=== PATIENT | male | born 1945 | race Caucasian/White ===

== ENCOUNTER → 2016-09-25 | Outpatient (CLI) | payer MEDICARE, BC ==
--- NOTE | 2016-09-25 15:22 | RAD ---
Left axillary ultrasound History: Left axillary lump, low platelet count. Comparison: None. Findings: Grayscale imaging was performed of the left axilla. Multiple enlarged lymph nodes are seen. Lymph nodes appear to retain fatty cornelio, but demonstrate cortical thickening. Lymph nodes are measured at 4.7 x 3.1 x 2.2 cm, 2.2 x 2.2 x 1.3 cm, 2.9 x 1.5 x 1.7 cm, and 2.1 x 1.9 x 1.6 cm. Numerous smaller lymph nodes are seen. Impression: Left axillary lymphadenopathy. Lymphoma versus metastatic lymphadenopathy are thought most likely. The lymphadenopathy is thought to be a greater than expected for reactive causes, although such is not entirely excluded. Recommend clinical correlation.
== END | disposition home or self-care (01) ==
LOC: US 09:45
PROVIDERS: ATTEND Family Medicine
DX: R59.0 Localized enlarged lymph nodes (principal); R91.8 Other nonspecific abnormal finding of lung field; R59.9 Enlarged lymph nodes, unspecified
CPT/HCPCS: 76881

== ENCOUNTER → 2016-10-16 | Outpatient (CLI) | payer MEDICARE, BC ==
[2016-10-16 13:57] LABS: BASO # 0.1 x10^3/uL (0.0-0.2); BASO % 1 % (0-3); EOS # 0.2 x10^3/uL (0.0-0.7); EOS % 2 % (0-3); HEMATOCRIT 42.5 % (39.0-53.0); HEMOGLOBIN 14.3 g/dL (13.0-17.5); LYMPH % 38 % (24-48); MEAN CORPUSCULAR HEMOGLOBIN 29 pg (25-35); MEAN CORPUSCULAR HGB CONC 34 g/dL (31-37); MEAN CORPUSCULAR VOLUME 86 fL (79-100); MONO # 0.5 x10^3/uL (0.0-1.1); MONO % 6 % (0-9); NEUT # 4.2 x10^3uL (1.8-7.7); NEUT % 53 % (31-73); PLATELET COUNT 178 x10^3/uL (140-400); RED BLOOD COUNT 4.96 x10^6/uL (4.30-5.70); RED CELL DISTRIBUTION WIDTH 15.3 % (11.5-14.5); WHITE BLOOD COUNT 7.9 x10^3/uL (4.0-11.0)
[2016-10-16 15:20] LABS: % EOS 2 % (0-5); % LYMPHS 38 % (24-48); % MONOS 3 % (0-10); % SEGS 57 % (35-66)
[2016-10-16 15:26] LABS: PLT ESTIMATE ADEQUATE (ADEQUATE)
== END | disposition home or self-care (01) ==
LOC: LAB 13:28
PROVIDERS: ATTEND Surgery
DX: R59.0 Localized enlarged lymph nodes (principal)
CPT/HCPCS: 36415; 85007; 85027; 85610; 85730

== ENCOUNTER → 2016-10-29 | Outpatient (CLI) | payer MEDICARE, BC ==
--- NOTE | 2016-10-29 16:30 | CARD ---
APPROVED REPORT EXAM: Two-dimensional and M-mode echocardiogram with Doppler and color Doppler. Other Information Quality : GoodHR: 85bpm Rhythm : NSR INDICATION Lymphoma 2D DIMENSIONS RVDd2.5 (2.9-3.5cm)IVSd1.0 (0.7-1.1cm) Aortic Root(2D)3.3 (2.0-3.7cm)LVDd4.7 (3.9-5.9cm) LVOT Diameter2.4 (1.8-2.4cm)PWd1.0 (0.7-1.1cm) LVDs3.2 (2.5-4.0cm)FS (%) 31.2 % SV59.7 mlLVEF(%)59.0 (>50%) Pulmonary Valve PV Peak Uzzbqqlc274.2cm/sPV Peak Grad.4mmHg LEFT VENTRICLE The left ventricle is normal size. There is normal left ventricular wall thickness. The left ventricu lar systolic function is normal and the ejection fraction is within normal range. The Ejection Fracti on is 55-60%. There is normal LV segmental wall motion. Limited echo, left ventricular diastology was not assessed. RIGHT VENTRICLE The right ventricle is normal size. There is normal right ventricular wall thickness. The right ventr icular systolic function is normal. ATRIA The left atrium size is normal. The right atrium size is normal. AORTIC VALVE The aortic valve is normal in structure and function. There is no significant aortic valvular stenosi s. MITRAL VALVE There is no evidence of mitral valve prolapse. There is no mitral valve stenosis. TRICUSPID VALVE There is no tricuspid valve prolapse or vegetation. There is no tricuspid valve stenosis. PULMONIC VALVE There is no pulmonic valvular stenosis. GREAT VESSELS The aortic root is normal in size. The ascending aorta is normal in size. The IVC was not assessed at exam time. PERICARDIAL EFFUSION There is no evidence of significant pericardial effusion. Critical Notification Critical Value: No <Conclusion> Limited echo to assess LV function. The left ventricular systolic function is normal and the ejection fraction is within normal range. The Ejection Fraction is 55-60%. There is no evidence of significant pericardial effusion.
== END | disposition home or self-care (01) ==
LOC: ECHO 14:39
PROVIDERS: ATTEND Internal Medicine Hematology & Oncology
DX: C82.20 Follicular lymphoma grade III, unspecified, unspecified site (principal)
CPT/HCPCS: 93308

== ENCOUNTER → 2016-12-23 | Outpatient (CLI) | payer MEDICARE, BC ==
--- NOTE | 2016-12-23 11:14 | RAD ---
Chest, 2 views, 12/23/2016: History: Fever, chemotherapy patient Comparison is made to a study from 11/07/2016. A left Port-A-Cath remains in place. It has pulled back slightly with its tip now lying at the junction of the left innominate vein and the superior vena cava. The heart size and pulmonary vascularity are normal. No pulmonary infiltrates are seen. There is no evidence of pleural fluid. There is mild loss of height of a midthoracic vertebral body of indeterminate age. There are mild scattered spurs in the spine. IMPRESSION: No acute cardiopulmonary abnormality is detected.
== END | disposition home or self-care (01) ==
LOC: DXRAD 10:13
PROVIDERS: ATTEND Internal Medicine Hematology & Oncology
DX: C82.20 Follicular lymphoma grade III, unspecified, unspecified site (principal); R50.9 Fever, unspecified
CPT/HCPCS: 71020

== ENCOUNTER → 2018-08-14 | Outpatient (CLI) | payer MEDICARE, BC ==
--- NOTE | 2018-08-14 14:54 | RAD ---
Indication:Elevated alkaline phosphatase TECHNIQUE: Grayscale, color Doppler and spectral waveform is of the abdomen obtained. COMPARISON:None FINDINGS: The visualized pancreas is within normal limits. No aortic aneurysm. IVC within normal limits. No gallstones, pericholecystic fluid or gallbladder wall thickening. Main portal vein is patent with hepatopedal flow. CBD measures 5 mm in diameter and is normal in size. Liver is mildly enlarged in size measuring 19 cm with diffusely increased echogenicity. Right kidney measures 11.2 cm in length without hydronephrosis. Spleen measures 11 cm in longest dimension and is normal in size. Left kidney measures 11.6 cm in length without hydronephrosis. IMPRESSION: 1. Hepatic steatosis. Mild hepatomegaly. 2. No cholelithiasis or sonographic evidence of acute cholecystitis. Electronically signed by: Aditya Nair DO (08/14/2018 2:51 PM) [id number]
== END | disposition home or self-care (01) ==
LOC: US 09:42
PROVIDERS: ATTEND Internal Medicine Hematology & Oncology
DX: K76.0 Fatty (change of) liver, not elsewhere classified (principal); R16.0 Hepatomegaly, not elsewhere classified
CPT/HCPCS: 76700

== ENCOUNTER 2019-02-17 01:17 | Emergency (ER) | payer MEDICARE, BC ==
[~2019-02-17] VITALS: Ht 172.7 cm; Wt 88.5 kg
[2019-02-17] MEDS ORDERED: MECLIZINE 12.5 MG TABLET. PO STA (01:48)
[2019-02-17] MEDS ORDERED: ONDANSETRON PF 4 MG/2 ML VIAL. IV ONE (02:00)
[2019-02-17] MEDS ORDERED: IV NORMAL SALINE 1,000ML 1,000 ML IV ONE (02:00)
--- NOTE | 2019-02-17 02:27 | RAD ---
CT head without contrast: Reason for examination: Headaches and dizziness. History of lymphoma. Axial images were obtained through the brain. No contrast was administered. Exposure: One or more of the following individualized dose reduction techniques were utilized for this examination: 1. Automated exposure control 2. Adjustment of the mA and/or kV according to patient size 3. Use of iterative reconstruction technique. Ventricular systems are symmetric and not abnormally dilated considering the patient's advanced age and generalized cerebral atrophy. No midline shift is seen. There is no evidence of intracranial hemorrhage, infarct, mass or edema. There are some mild patchy deep white matter changes consistent with microvascular ischemia. No abnormalities are seen at the orbits. No acute abnormality seen in the skull. The paranasal sinuses and mastoid air cells are clear. IMPRESSION: Generalized cerebral atrophy with mild patchy deep white matter microvascular ischemic changes. No acute intracranial abnormality evident. Electronically signed by: Liv Alanis MD (02/17/2019 2:24 AM) [facility]
[2019-02-17 02:38] LABS: BASO % 1 % (0-3); EOS # 0.1 x10^3/uL (0.0-0.7); EOS % 2 % (0-3); HEMATOCRIT 42.2 % (39.0-53.0); HEMOGLOBIN 14.4 g/dL (13.0-17.5); LYMPH # 1.3 x10^3/uL (1.0-4.8); LYMPH % 21 % (24-48); MEAN CORPUSCULAR HEMOGLOBIN 32 pg (25-35); MEAN CORPUSCULAR HGB CONC 34 g/dL (31-37); MEAN CORPUSCULAR VOLUME 93 fL (79-100); MONO # 0.4 x10^3/uL (0.0-1.1); MONO % 7 % (0-9); NEUT # 4.2 x10^3uL (1.8-7.7); NEUT % 70 % (31-73); PLATELET COUNT 183 x10^3/uL (140-400); RED BLOOD COUNT 4.53 x10^6/uL (4.30-5.70); RED CELL DISTRIBUTION WIDTH 13.5 % (11.5-14.5)
[2019-02-17 02:47] LABS: BACTERIA,URINE 0 /HPF (0-FEW); BILIRUBIN,URINE NEG (NEG); CLARITY,URINE CLEAR; COLOR,URINE YELLOW; GLUCOSE,URINE NEG (NEG); NITRITE,URINE NEG (NEG); RBC,URINE 0 /HPF (0-2); SQUAMOUS EPITHELIAL CELL,UR OCC /LPF; UROBILINOGEN,URINE 0.2 mg/dL (0.2 mg/dL)
[2019-02-17 02:52] LABS: ALBUMIN 4.2 g/dL (3.4-5.0); ALBUMIN/GLOBULIN RATIO 1.6 (1.0-1.7); CALCIUM 9.1 mg/dL (8.5-10.1); GFR 73.7; POTASSIUM 3.8 mmol/L (3.5-5.1); TOTAL BILIRUBIN 0.6 mg/dL (0.2-1.0); TOTAL PROTEIN 6.8 g/dL (6.4-8.2)
[2019-02-17 02:55] VITALS: BP 141/86
--- NOTE | 2019-02-17 03:02 | PHYS DOC ---
Past History Past Medical History: Other Past Surgical History: Other Alcohol Use: None Drug Use: None Adult General Chief Complaint Chief Complaint: DIZZY/LIGHT HEADED HPI HPI Patient is a [73 yo m p/w dizziness onset 11 pm feels like room spinning worse with head positioning no diplopia no speech difficulty no n/tweakness in arms or legs no fever minimla posterior headache where it joins top of neck, not shooting or severe just feels a little stiff hx of nonhodgkins lymphoma. symptoms worsening with time thought he would fall over so came to er for evaluation. Review of Systems Review of Systems Constitutional: Denies fever or chills [] Eyes: Denies change in visual acuity, redness, or eye pain [] HENT: Denies nasal congestion or sore throat [] Respiratory: Denies cough or shortness of breath [] Cardiovascular: No additional information not addressed in HPI [] GI: Denies abdominal pain, nausea, vomiting, bloody stools or diarrhea [] : Denies dysuria or hematuria [] Musculoskeletal: Denies back pain or joint pain [] Integument: Denies rash or skin lesions [] Neurologic: Denies headache, focal weakness or sensory changes [] Endocrine: Denies polyuria or polydipsia [] All other systems were reviewed and found to be within normal limits, except as documented in this note. Current Medications Current Medications Current Medications Medications (Trade) Dose Ordered Sig/Jose R Start Time Stop Time Status Last Admin Dose Admin Meclizine HCl (Antivert) 25 mg 1X STAT 02/17/19 01:48 02/17/19 02:27 DC 02/17/19 01:56 25 MG Ondansetron HCl (Zofran) 4 mg 1X ONCE 02/17/19 02:00 02/17/19 02:27 DC 02/17/19 01:56 4 MG Sodium Chloride 1,000 ml @ 1,000 mls/hr 1X ONCE 02/17/19 02:00 02/17/19 02:59 02/17/19 01:53 1,000 MLS/HR Allergies Allergies Allergies Coded Allergies Type Severity Reaction Last Updated Verified tetracycline Allergy Unknown 02/17/19 Yes Physical Exam Physical Exam Constitutional: Well developed, well nourished, no acute distress, non-toxic appearance. [] HENT: Normocephalic, atraumatic, bilateral external ears normal, oropharynx moist, no oral exudates, nose normal. [] Eyes: PERRLA, EOMI, conjunctiva normal, no discharge. [] Neck: Normal range of motion, no tenderness, supple, no stridor. [] Cardiovascular:Heart rate regular rhythm, no murmur [] Lungs & Thorax: Bilateral breath sounds clear to auscultation [] Abdomen: Bowel sounds normal, soft, no tenderness, no masses, no pulsatile masses. [] Skin: Warm, dry, no erythema, no rash. [] Back: No tenderness, no CVA tenderness. [] Extremities: No tenderness, no cyanosis, no clubbing, ROM intact, no edema. [] Neurologic: Alert and oriented X 3, normal motor function, normal sensory function, no focal deficits noted. [] fnf intact b/l some fatiguable horizontal nystagmus when looking to the right no vertical nystagmus Psychologic: Affect normal, judgement normal, mood normal. [] Current Patient Data Vital Signs Vital Signs Date Time Temp Pulse Resp B/P (MAP) Pulse Ox O2 Delivery O2 Flow Rate FiO2 02/17/19 01:49 62 18 151/96 (114) 97 Room Air 02/17/19 01:19 97.7 Lab Results Laboratory Tests Test 02/17/19 01:49 02/17/19 02:15 White Blood Count 6.0 x10^3/uL (4.0-11.0) Red Blood Count 4.53 x10^6/uL (4.30-5.70) Hemoglobin 14.4 g/dL (13.0-17.5) Hematocrit 42.2 % (39.0-53.0) Mean Corpuscular Volume 93 fL (79-100) Mean Corpuscular Hemoglobin 32 pg (25-35) Mean Corpuscular Hemoglobin Concent 34 g/dL (31-37) Red Cell Distribution Width 13.5 % (11.5-14.5) Platelet Count 183 x10^3/uL (140-400) Neutrophils (%) (Auto) 70 % (31-73) Lymphocytes (%) (Auto) 21 % (24-48) L Monocytes (%) (Auto) 7 % (0-9) Eosinophils (%) (Auto) 2 % (0-3) Basophils (%) (Auto) 1 % (0-3) Neutrophils # (Auto) 4.2 x10^3uL (1.8-7.7) Lymphocytes # (Auto) 1.3 x10^3/uL (1.0-4.8) Monocytes # (Auto) 0.4 x10^3/uL (0.0-1.1) Eosinophils # (Auto) 0.1 x10^3/uL (0.0-0.7) Basophils # (Auto) 0.0 x10^3/uL (0.0-0.2) Sodium Level 143 mmol/L (136-145) Potassium Level 3.8 mmol/L (3.5-5.1) Chloride Level 104 mmol/L (98-107) Carbon Dioxide Level 30 mmol/L (21-32) Anion Gap 9 (6-14) Blood Urea Nitrogen 17 mg/dL (8-26) Creatinine 1.0 mg/dL (0.7-1.3) Estimated GFR (Cockcroft-Gault) 73.7 BUN/Creatinine Ratio 17 (6-20) Glucose Level 97 mg/dL (70-99) Calcium Level 9.1 mg/dL (8.5-10.1) Total Bilirubin 0.6 mg/dL (0.2-1.0) Aspartate Amino Transferase (AST) 23 U/L (15-37) Alanine Aminotransferase (ALT) 27 U/L (16-63) Alkaline Phosphatase 122 U/L (46-116) H Total Protein 6.8 g/dL (6.4-8.2) Albumin 4.2 g/dL (3.4-5.0) Albumin/Globulin Ratio 1.6 (1.0-1.7) Urine Collection Type Unknown Urine Color Yellow Urine Clarity Clear Urine pH 7.0 Urine Specific [place] 1.015 Urine Protein Neg (NEG-TRACE) Urine Glucose (UA) Neg mg/dL (NEG) Urine Ketones (Stick) Neg mg/dL (NEG) Urine Blood Neg (NEG) Urine Nitrite Neg (NEG) Urine Bilirubin Neg (NEG) Urine Urobilinogen Dipstick 0.2 mg/dL (0.2 mg/dL) Urine Leukocyte Esterase Neg (NEG) Urine RBC 0 /HPF (0-2) Urine WBC 1-4 /HPF (0-4) Urine Squamous Epithelial Cells Occ /LPF Urine Bacteria 0 /HPF (0-FEW) EKG EKG []nsr rate 60 no acute ischemic changes qtc 402 no stemi. Radiology/Procedures Radiology/Procedures [] Impressions: IMPRESSION: Generalized cerebral atrophy with mild patchy deep white matter microvascular ischemic changes. No acute intracranial abnormality evident. Electronically signed by: Liv Alanis MD (02/17/2019 2:24 AM) [facility] Course & Med Decision Making Course & Med Decision Making Pertinent Labs and Imaging studies reviewed. (See chart for details) []dizziness likely vertigo no objective or lateralizing neuro defiict trop/ekg at 3-4 hours after symptoms no chest pain doubt cardiac. pt is stable in the Emergency room. pt had recurrent symptoms when moving head to get off the ct table but is stable at rest. i suspect peripheral vertigo we talked about tx options he wants to try steroids as it helped his dad in the past when he had similar condition. Dragon Disclaimer Dragon Disclaimer This electronic medical record was generated, in whole or in part, using a voice recognition dictation system. Departure Departure: Impression: Primary Impression: Dizziness Disposition: 01 HOME, SELF-CARE Condition: STABLE Referrals: NUPUR MONIQUE MD (PCP) Scripts Methylprednisolone (MEDROL) 4 Mg Tab.ds.pk 1 PKG PO UD for vertigo, #1 PKG Prov: MICHELLE MCKEON MD 02/17/19 Meclizine Hcl (MECLIZINE HCL) 25 Mg Tablet 1 TAB PO TID PRN for DIZZINESS, #30 TAB Prov: MICHELLE MCKEON MD 02/17/19 MICHELLE MCKEON MD Feb 17, 2019 03:01
[2019-02-17] MEDS ORDERED: METH4TAB2 PO (03:07)
[2019-02-17] MEDS ORDERED: MECL25TA3 PO (03:07)
--- NOTE | 2019-02-17 06:30 | EKG ---
[address] [address] Test Date: 2019-02-17 Test Time: 01:39:01 Pat Name: CASSIDY BHATT Department: Room: Gender: M Power Distributor: : 1945 Requested By: MICHELLE MCKEON Order Number: [id number] Reading MD: Loki Kern MD Measurements Intervals [place] Rate: 60 P: 0 ME: 148 QRS: -13 QRSD: 92 T: 10 QT: 398 QTc: 402 Interpretive Statements SINUS RHYTHM Electronically Signed On 02-17-2019 8:16:20 CDT by Loki Kern MD
== END 2019-02-17 03:23 | disposition home or self-care (01) ==
LOC: ER 01:17
DX: R42 Dizziness and giddiness (principal); R51 Headache; Z85.72 Personal history of non-Hodgkin lymphomas; Z88.1 Allergy status to other antibiotic agents
CPT/HCPCS: 36415; 70450; 80053; 81001; 84484; 85025; 93005; 96361; 96374; 99285; J2405; J8597; J7030

== ENCOUNTER → 2021-02-15 | Outpatient (CLI) | payer MEDICARE, BC ==
[~2021-02-15] MED LIST: MECL-75 PO; METH4TAB2 PO
--- NOTE | 2021-02-15 11:32 | RAD ---
LEFT LEG VENOUS DOPPLER STUDY: Clinical indications: Left leg pain. Findings: Duplex sonography (including brown scale evaluation and color flow and waveform spectral angelo lysis) of the proximal aspect of the greater saphenous vein and the proximal aspect of the profunda f emoral vein and the entire length of the common femoral and superficial femoral and popliteal veins a nd the tibioperoneal trunk and the proximal aspect of the posterior tibial and peroneal veins of the left leg was performed. Normal compressibility, augmentation of color Doppler flow after calf thien denilson, and respiratory variation of Doppler flow is seen. Thus, there are no sonographic findings of d eep venous thrombosis within these veins. Impression: There are no sonographic findings of deep venous thrombosis within the veins discussed ab ove of the left lower extremity. Electronically signed by: Calvin Flood MD (02/15/2021 11:30 AM) [id number]
== END ==
LOC: RAD 10:48
PROVIDERS: ATTEND Family Medicine
DX: M79.605 Pain in left leg (principal); Z87.828 Personal history of other (healed) physical injury and trauma
CPT/HCPCS: 93971

== ENCOUNTER 2021-09-09 14:45 | Emergency (ER) | payer MEDICARE, BC ==
[~2021-09-09] VITALS: Ht 172.7 cm; Wt 85.5 kg
[2021-09-09] MEDS ORDERED: ADENOSINE 6 MG/2 ML VIAL IV ONE ×2 (15:05→15:15)
[2021-09-09] MEDS ORDERED: ASPIRIN CHEWABLE 81 MG TABLET. ONE (15:14)
[2021-09-09] MEDS ORDERED: IV RINGERS SOLUTION,LACTATED 1,000 ML IV SCH (15:15)
[2021-09-09] MEDS ORDERED: ASPIRIN CHEWABLE 81 MG TABLET. PO ONE (15:15)
[2021-09-09 15:17] LABS: BASO # 0.1 x10^3/uL (0.0-0.2); BASO % 1 % (0-3); EOS # 0.1 x10^3/uL (0.0-0.7); EOS % 1 % (0-3); HEMATOCRIT 43.7 % (39.0-53.0); HEMOGLOBIN 14.9 g/dL (13.0-17.5); LYMPH # 1.8 x10^3/uL (1.0-4.8); LYMPH % 27 % (24-48); MEAN CORPUSCULAR HEMOGLOBIN 31 pg (25-35); MEAN CORPUSCULAR HGB CONC 34 g/dL (31-37); MEAN CORPUSCULAR VOLUME 90 fL (79-100); MONO # 0.6 x10^3/uL (0.0-1.1); MONO % 9 % (0-9); NEUT # 4.2 x10^3uL (1.8-7.7); NEUT % 62 % (31-73); PLATELET COUNT 194 x10^3/uL (140-400); RED BLOOD COUNT 4.86 x10^6/uL (4.30-5.70); RED CELL DISTRIBUTION WIDTH 13.8 % (11.5-14.5); WHITE BLOOD COUNT 6.8 x10^3/uL (4.0-11.0)
[2021-09-09 15:24] LABS: CALCIUM 9.2 mg/dL (8.5-10.1); CREATININE 1.1 mg/dL (0.7-1.3); GFR 65.4; POTASSIUM 4.1 mmol/L (3.5-5.1)
[2021-09-09 15:29] LABS: ALBUMIN 4.2 g/dL (3.4-5.0); ALBUMIN/GLOBULIN RATIO 1.7 (1.0-1.7); MAGNESIUM 1.8 mg/dL (1.8-2.4); TOTAL BILIRUBIN 0.6 mg/dL (0.2-1.0); TOTAL PROTEIN 6.7 g/dL (6.4-8.2)
[2021-09-09] MEDS ORDERED: IV NORMAL SALINE 100ML 100 ML ONE (15:29)
--- NOTE | 2021-09-09 15:29 | RAD ---
Exam performed: One view chest. Indication: Reason: palpitations / Spl. Instructions: / History: Date of Service: 09/09/2021 3:12 PM Comparison: Two-view chest from 12/23/2016. Single AP upright portable view chest findings: Cardiomediastinal silhouette is stable. No acute infiltrates, effusion or pneumothorax is detected. There is interval removal of the left-sided Port-A-Cath. The bony structures are normal. Impression: No acute cardiopulmonary process is detected. Electronically signed by: Keira Powell MD (09/09/2021 3:26 PM) [facility]
[2021-09-09] MEDS ORDERED: dilTIAZem VIAL 125 MG in IV NORMAL SALINE 100ML 100 ML IV PRN (15:30)
[2021-09-09] MEDS ORDERED: dilTIAZem 25 MG/5 ML VIAL IVP ONE (15:30)
[2021-09-09 15:58] VITALS: BP 126/62
--- NOTE | 2021-09-09 16:07 | PHYS DOC ---
Past History Past Medical History: A-Fib, COPD, GERD, Other Additional Past Medical Histor: lymphoma in remission (BRENDA HAND) Past Surgical History: Other Additional Past Surgical Histo: prior port for chemo (BRENDA HAND) Alcohol Use: None Drug Use: None (BRENDA HAND) General Adult EDM: Chief Complaint: RAPID HEART RATE HPI: HPI: Patient is a 76 year old male recently diagnosed with A. fib who presents with rapid heart rate. Patient states that he [facility] He underwent electrocardioversion on 08/31/2021. He reports that his heart rates have been in the 60s since. He takes metoprolol, amiodarone and Eliquis daily since his diagnosis. Patient reports that this past , which was 3 days ago, his heart rate was between 90 and 100 bpm. On Friday, he had a stress test where he had a maximum heart rate into 20s. Starting this morning, he reports his heart rate has been 140s to 150s. He has attempted at home vagal maneuvers including Valsalva and carotid massage without success. Patient denies chest pain, edema, shortness of breath, cough and any other complaints. (BRENDA HAND) Review of Systems: Review of Systems: Constitutional: Denies fever, chills or generalized weakness Eyes: Denies change in visual acuity, visual field deficits or discharge HENT: Denies ear pain, nasal congestion or sore throat Respiratory: See HPI Cardiovascular: See HPI GI: Denies abdominal pain, nausea, vomiting, bloody stools or diarrhea : Denies dysuria or hematuria Musculoskeletal: Denies back pain or joint pain Integument: Denies rash or other skin lesion Neurologic: Denies headache, focal weakness or sensory changes (BRENDA HAND) Current Medications: Current Meds: Current Medications Medications (Trade) Dose Ordered Sig/Jose R Start Time Stop Time Status Last Admin Dose Admin Adenosine (Adenocard) 6 mg 1X ONCE 09/09/21 15:15 09/09/21 15:16 DC 09/09/21 15:15 6 MG Aspirin (Aspirin Chewable) 81 mg STK-MED ONCE 09/09/21 15:14 09/09/21 15:14 DC Diltiazem HCl (Cardizem Iv Push) 20 mg 1X ONCE 09/09/21 15:30 09/09/21 15:31 DC 09/09/21 15:37 20 MG Diltiazem HCl (Cardizem) 125 mg STK-MED ONCE 09/09/21 15:29 09/09/21 15:29 DC Diltiazem HCl 125 mg/Sodium Chloride 125 ml @ 5 mls/hr CONT PRN 09/09/21 15:30 09/09/21 15:39 5 MLS/HR Lactated Ringer's 1,000 ml @ 1,000 mls/hr Q1H 09/09/21 15:15 09/09/21 16:14 09/09/21 15:16 1,000 MLS/HR Sodium Chloride 100 ml @ As Directed STK-MED ONCE 09/09/21 15:29 09/09/21 15:29 DC (BRENDA HAND) Allergies: Allergies: Allergies Coded Allergies Type Severity Reaction Last Updated Verified tetracycline Allergy Unknown 02/17/19 Yes (BRENDA HAND) Physical Exam: PE: Constitutional: Well developed, well nourished, no acute distress, non-toxic appearance. HENT: Normocephalic, atraumatic, bilateral external ears normal, nose normal. Eyes: EOMI, conjunctiva normal, no discharge. Neck: Normal range of motion, no stridor. Cardiovascular: Tachycardic heart rate with regular rhythm on initial exam. Irregularly irregular after rate control. Lungs & Thorax: Bilateral breath sounds clear to auscultation. Skin: Warm, dry, no erythema, no rash. Extremities: No tenderness, no cyanosis, no clubbing, ROM intact, no edema. Neurologic: Alert and oriented x4, no focal deficits noted. (BRENDA HAND) PE: Constitutional: Well developed, well nourished, no acute distress HENT: Normocephalic, atraumatic Eyes: Conjunctiva normal, no discharge Neck: Normal range of motion, supple Lungs & Thorax: No respiratory distress, equal chest rise and fall Cardiovascular: Tachycardia, peripheral pulses equal Skin: Warm, dry, no erythema, no rash Neurologic: Alert and oriented X 3, no focal deficits noted Psychologic: Affect normal, judgment normal (CHIRAG LU DO) Current Patient Data: Labs: Laboratory Tests Test 09/09/21 15:02 White Blood Count 6.8 x10^3/uL (4.0-11.0) Red Blood Count 4.86 x10^6/uL (4.30-5.70) Hemoglobin 14.9 g/dL (13.0-17.5) Hematocrit 43.7 % (39.0-53.0) Mean Corpuscular Volume 90 fL (79-100) Mean Corpuscular Hemoglobin 31 pg (25-35) Mean Corpuscular Hemoglobin Concent 34 g/dL (31-37) Red Cell Distribution Width 13.8 % (11.5-14.5) Platelet Count 194 x10^3/uL (140-400) Neutrophils (%) (Auto) 62 % (31-73) Lymphocytes (%) (Auto) 27 % (24-48) Monocytes (%) (Auto) 9 % (0-9) Eosinophils (%) (Auto) 1 % (0-3) Basophils (%) (Auto) 1 % (0-3) Neutrophils # (Auto) 4.2 x10^3uL (1.8-7.7) Lymphocytes # (Auto) 1.8 x10^3/uL (1.0-4.8) Monocytes # (Auto) 0.6 x10^3/uL (0.0-1.1) Eosinophils # (Auto) 0.1 x10^3/uL (0.0-0.7) Basophils # (Auto) 0.1 x10^3/uL (0.0-0.2) Sodium Level 141 mmol/L (136-145) Potassium Level 4.1 mmol/L (3.5-5.1) Chloride Level 105 mmol/L (98-107) Carbon Dioxide Level 29 mmol/L (21-32) Anion Gap 7 (6-14) Blood Urea Nitrogen 21 mg/dL (8-26) Creatinine 1.1 mg/dL (0.7-1.3) Estimated GFR (Cockcroft-Gault) 65.4 BUN/Creatinine Ratio 19 (6-20) Glucose Level 93 mg/dL (70-99) Calcium Level 9.2 mg/dL (8.5-10.1) Magnesium Level 1.8 mg/dL (1.8-2.4) Total Bilirubin 0.6 mg/dL (0.2-1.0) Aspartate Amino Transferase (AST) 14 U/L (15-37) L Alanine Aminotransferase (ALT) 20 U/L (16-63) Alkaline Phosphatase 108 U/L (46-116) Troponin I High Sensitivity 13 ng/L (4-75) Total Protein 6.7 g/dL (6.4-8.2) Albumin 4.2 g/dL (3.4-5.0) Albumin/Globulin Ratio 1.7 (1.0-1.7) Vital Signs: Vital Signs Date Time Temp Pulse Resp B/P (MAP) Pulse Ox O2 Delivery O2 Flow Rate FiO2 09/09/21 15:58 80 14 126/62 (83) 98 Room Air 09/09/21 15:44 79 14 122/70 (87) 97 Room Air 09/09/21 15:40 101 14 113/79 (90) 98 Room Air 09/09/21 15:37 151 139/102 09/09/21 15:22 153 14 139/102 (114) 98 Room Air 09/09/21 14:55 150 16 162/105 (124) 97 Room Air 09/09/21 14:45 150 18 151/103 (119) 98 Room Air 09/09/21 14:45 98.2 150 151/103 (119) 98 (BRENDA HAND) EKG: EKG: EKG Interpreted by Dr. Lu at 1501: SVT at 151 bpm with no ectopic beats. QT 310 ms/QTc 492 ms. No STEMI. EKG Interpreted by []: Irregularly irregular rhythm at 88 bpm. QT 376 ms/QTc 459 ms. No STEMI. (BRENDA HAND) Radiology/Procedures: Radiology/Procedures: PROCEDURE: PORTABLE CHEST 1V Exam performed: One view chest. Indication: Reason: palpitations / Spl. Instructions: / History: Date of Service: 09/09/2021 3:12 PM Comparison: Two-view chest from 12/23/2016. Single AP upright portable view chest findings: Cardiomediastinal silhouette is stable. No acute infiltrates, effusion or pneumothorax is detected. There is interval removal of the left-sided Port-A-Cath. The bony structures are normal. Impression: No acute cardiopulmonary process is detected. Electronically signed by: Keira Powell MD (09/09/2021 3:26 PM) [facility] (BRENDA HAND) Heart Score: C/O Chest Pain: No (BRENDA HAND) Course & Med Decision Making: Course & Med Decision Making Pertinent Labs and Imaging studies reviewed. (See chart for details) Patient is a 76-year-old male who was recently diagnosed with atrial fibrillation who presents today with rapid heart rate. On initial EKG, it appears to be SVT or sinus tachycardia. 6 adenosine administered IV. A good pause was noted on monitor, and underlying A. fib/a flutter observed. However, tachycardia quickly returned. Administration was supervised by Dr. Lu in the department. At that time, the decision was made to administer Cardizem bolus followed by Cardizem drip. Placed call to cardiology and spoke with Dr. Aiken and made him aware patient case. Patient was gladly accepted by Dr. Foy, hospitalist at [facility]. All of the patient and his 's questions were answered at bedside. Patient was rate controlled and hemodynamically stable at the time of transfer. (BRENDA HAND) Dragon Disclaimer: Dragon Disclaimer: This electronic medical record was generated, in whole or in part, using a voice recognition dictation system. (BRENDA HAND) Departure Departure: Impression: Primary Impression: Atrial fibrillation with RVR Disposition: 02 SHORT TERM HOSPITAL Condition: GUARDED Referrals: NUPUR MONIQUE MD (PCP) Attending Signature Attending Signature I have personally interviewed and examined the patient. All charts, labs, and imaging studies were reviewed. I agree with the PA/CORPORATE REAL ESTATE SPECIALIST's findings, exam, and plan. (CHIRAG LU DO) Critical Care Time Critical care time was 30 minutes which includes time at bedside, spent in discussion of patient's care with specialists and/or family members, with interpretation of laboratory and/or radiological studies and is exclusive of procedures. (CHIRAG LU DO) BRENDA HAND Sep 09, 2021 16:06 CHIRAG LU DO Sep 10, 2021 00:57
--- NOTE | 2021-09-09 19:21 | EKG ---
[address] [address] Test Date: 2021-09-09 Test Time: 15:59:47 Pat Name: CASSIDY BHATT Department: Room: Gender: M Financial Aid Advisor: NOVA : 1945 Requested By: BRENDA HAND Order Number: [id number] Reading MD: Measurements Intervals [place] Rate: 88 P: [place]: QRS: -19 QRSD: 92 T: 18 QT: 376 QTc: 459 Interpretive Statements IRREGULAR RHYTHM, NO P-WAVE FOUND LEFTWARD AXIS NO SPECIFIC ECG ABNORMALITIES RI6.01 No previous ECG available for comparison
--- NOTE | 2021-09-11 01:28 | EKG ---
[address] [address] Test Date: 2021-09-09 Test Time: 14:59:54 Pat Name: CASSIDY BHATT Department: Room: Gender: M Shipping Technician: MILI : 1945 Requested By: BRENDA HAND Order Number: [id number] Reading MD: Measurements Intervals [place] Rate: 151 P: 82 FL: 72 QRS: -49 QRSD: 88 T: 43 QT: 310 QTc: 492 Interpretive Statements SINUS TACHYCARDIA RIGHT ATRIAL ENLARGEMENT ABNORMAL LEFT AXIS DEVIATION QRS(T) CONTOUR ABNORMALITY CONSISTENT WITH INFERIOR INFARCT PROBABLY OLD ST & T ABNORMALITY, CONSIDER ANTERIOR ISCHEMIA OR LEFT VENTRICULAR STRAIN ABNORMAL ECG RI6.01 No previous ECG available for comparison
== END 2021-09-09 16:28 | disposition short-term general hospital (02) ==
LOC: ER 14:45
DX: I48.20 Chronic atrial fibrillation, unspecified (principal); J44.9 Chronic obstructive pulmonary disease, unspecified; K21.9 Gastro-esophageal reflux disease without esophagitis; Z88.1 Allergy status to other antibiotic agents
CPT/HCPCS: 36415; 71045; 80053; 83735; 84484; 85025; 93005; 96365; 96375; 96376; 99285; J0153; J3490; J7120